=== PATIENT | female | born 1990 | race Caucasian/White ===

== ENCOUNTER 2025-01-29 01:47 | Emergency (ER) | payer MEDICAID ==
[~2025-01-29] VITALS: Ht 157.5 cm; Wt 67.0 kg
[2025-01-29 01:03] VITALS: O2SAT 98
[2025-01-29 01:53] LABS: BASOPHILS % 0.8 % (0.0-2.0); EOSINOPHILS % 4.2 % (0.0-5.0); HEMATOCRIT. 34.9 % (36.0-48.0); HEMOGLOBIN. 11.5 g/dL (12.0-16.0); LYMPHOCYTES % 26.2 % (20.0-50.0); MEAN PLATELET VOLUME 8.2 fl (7.4-10.4); MONOCYTES % 8.0 % (2.0-8.0); NEUTROPHILS % 60.8 % (40.0-76.0); PLATELET 303 x1000/uL (130-400); RED BLOOD CELL COUNT 4.32 mill/uL (4.2-5.4); RED CELL DISTRIBUTION WIDTH 15.2 % (11.6-14.6)
[2025-01-29] MEDS: KETOROLAC 15MG/ML VIAL IM ONE (01:53)
[2025-01-29 01:59] LABS: CREATININE 0.7 mg/dL (0.6-1.0); UREA NITROGEN BLOOD 12 mg/dL (9-23)
[2025-01-29 02:03] LABS: TROPONIN I HIGH SENSITIVITY < 4 ng/L (3.0-34)
[2025-01-29 02:17] LABS: HCG SCREEN NEGATIVE
[2025-01-29] MEDS ORDERED: CYCL10TA21 MT (02:33)
[2025-01-29] MEDS ORDERED: IBUP-1455 MT (02:33)
[2025-01-29 03:02] VITALS: BP 119/80; PULSE 77; RESP 20; TEMP 37; O2SAT 98
== END 2025-01-29 03:24 | disposition home or self-care (01) ==
LOC: ER 03:24
DX: R07.89 Other chest pain (principal); M25.561 Pain in right knee
CPT/HCPCS: 99284; 29505; 71045; 80048; 81025; 84703; 85025; 84484; 36415; 73562; 96372; J1885